=== PATIENT | male | born 1950 | race Caucasian/White ===

== ENCOUNTER 2016-11-23 15:33 | Emergency (ER) | payer OTHER ==
[~2016-11-23] VITALS: Ht 188 cm; Wt 112.1 kg
[2016-11-23 15:39] VITALS: BP 173/102; PULSE 91; TEMP 36.7; O2SAT 98; Ht 188 cm; Wt 112.1 kg
[2016-11-23] MEDS ORDERED: XYLOCAINE 1%/SOD BICARB 20 ML VIAL INFIL ONE (15:45)
[2016-11-23] MEDS ORDERED: AMLO-114 PO (16:22)
[2016-11-23] MEDS ORDERED: ASPI81TA28 PO (16:22)
[2016-11-23] MEDS ORDERED: ATOR-24 PO (16:22)
--- NOTE | 2016-11-23 18:18 | EMERGENCY ROOM VISIT NOTE ---
ED Visit Note First contact with patient: 15:42 Chief Complaint: Right thumb laceration. History of Present Illness: Mr. Keenan is a 66-year-old white male who ambulates into the ED accompanied by his complaining of a right thumb laceration. Patient reports he was picking up a broken glass and accidentally cut his thumb. He attempted to control bleeding prior to arrival at the hospital but did not wash the wound. Associated with the laceration he reports she's had a stinging pain in the thumb. He rates his discomfort 2/10. His pain is nonradiating. His pain worsens with palpation. He has not identified any alleviating factors related to the pain. He has not taken any medication for pain prior to arrival at the hospital. He denies any associated symptoms including other hand pain, other finger pain, thumb weakness/numbness/tingling. Review of Systems: As noted above in history of present illness. Past Medical History: Patient denies. Current Medications: Aspirin. Allergies to Medications: Penicillin. Social History: Patient is currently retired; he feels safe in his home environment; he denies tobacco use. Tetanus Immunization Status: Patient reports he is unsure so he is rechecked with his primary care provider. Physical Examination: Vital Signs: Date Time Temp Pulse Resp B/P Pulse Ox O2 Delivery O2 Flow Rate FiO2 11/23/ 15:39 36.7 91 18 173/102 98 Room Air GENERAL: 66-year-old male in mild distress due to pain, nontoxic-appearing, afebrile and hemodynamically stable. NEUROLOGICAL: Awake, alert and oriented to person, place and time. Answering questions appropriately and following commands. Normal gait. Good hand eye coordination. No focal motor or sensory deficits. SKIN: Warm, dry and pink. Right Thumb: Over the anterior aspect of the hand over the first MCP joint patient has a 1.9 cm full-thickness laceration with minimal bleeding. RIGHT THUMB: Soft tissue injury as noted above under SKIN. No gross bony deformity. Mild tenderness over the laceration but no tenderness over the MCP joint. Full range of motion against resistance in all movement of the MCP and interphalangeal joint. Throughout the thumb the skin was warm and pink and capillary refill is brisk. He was able to distinguish light sensations through all dermatomes. ED Course: Patient is assessed as noted above. Wound Repair: Complexity: Basic Verbal consent was obtained after the risks and benefits were explained. The skin was prepped with betadine and a sterile field set. Wound edges of the wound was anesthetized with 1.1 ml buffered 1% lidocaine. The wound was explored for foreign bodies and none found. Copious irrigation was performed using sterile saline. With direct pressure the bleeding subsided. Debridement was not performed. The wound edges were approximated using 5-0 Ethilon with 3 simple interrupted sutures. Hemostasis and excellent approximation was achieved. Antibacterial ointment and a sterile dressing applied. No complications and the patient tolerated the procedure well. Patient was educated about tonight's findings and instructed on his treatment plan; he verbalizes understanding and agreement with this plan. Clinical Impression: Laceration of the right thumb. Disposition: Patient discharged home in stable condition; prior to departure he was reassessed and subjectively reported pain and symptom-free. Plan: Comfort measures, wound care, and signs of infection were discussed with the patient. Patient was encouraged to follow-up with PCP or return to the ED for any signs of infection and/or suture removal in 10-12 days.
== END 2016-11-23 16:18 | disposition home or self-care (01) ==
LOC: C.EDB 15:35 → C.EDD 16:18
DX: S61.011A Laceration without foreign body of right thumb without damage to nail, initial encounter (principal); W25.XXXA Contact with sharp glass, initial encounter